=== PATIENT | female | born 1990 | race African-American/Black ===

== ENCOUNTER 2016-11-25 15:05 | Emergency (ER) | payer MEDICAID ==
[~2016-11-25] VITALS: Ht 157.5 cm; Wt 60.0 kg
[~2016-11-25 15:05] MED LIST: CYCL-36 PO; DICL50 PO; NAPR-576 PO
[2016-11-25 15:06] VITALS: BP 109/62; PULSE 88; RESP 18; TEMP 98.9; O2SAT 97
--- NOTE | 2016-11-25 15:37 | PD ---
HPI Chief Complaint: Complaint Time Seen by Provider: 15:37 Travel History International Travel<30 days: No Contact w/Intl Traveler<30days: No Traveled to known affect area: No History of Present Illness HPI 26 year old female came to the emergency room with history of dysuria, frequency or past 4 days. She is also having some chills and cough. Since yesterday she also noticed that the pain was more on the left side of her abdomen and was spasmodic in nature comes and goes. No history of nausea vomiting. Patient has never had pain like this before. She has had UTIs in the past. Her last bowel movement was 4 days ago. Vital signs were stable. She is otherwise a healthy person. [facility] Past Medical History Narrative Medical List of her past medical history as reviewed from the nursing note. Diminished Hearing: No Immunizations Current: No ?: Not LMP: 10/14/16 : 3 Para: 3 Miscarriage: 0 : 0 Social History Alcohol Use: Yes (Occasionally) Tobacco Use: No Substance Use: No Allergies-Medications (Allergen,Severity, Reaction): Coded Allergies: No Known Allergies (Verified , 07/03/16) Comments No known drug allergies. Reported Meds & Prescriptions Reported Meds & Active Scripts Active Macrobid (Nitrofurantoin Monoh/Nitrofur Macro) 100 Mg Cap 100 Mg PO BID 10 Days Narrative Medication list of her home medications reviewed from the nursing note. Review of Systems Except as stated in HPI: all other systems reviewed are Neg Physical Exam Narrative GENERAL: Awake, alert, no obvious distress SKIN: Warm and dry. HEAD: Atraumatic. Normocephalic. EYES: Pupils equal and round. No scleral icterus. No injection or drainage. ENT: No nasal bleeding or discharge. Mucous membranes pink and moist. NECK: Trachea midline. No JVD. CARDIOVASCULAR: Regular rate and rhythm. No murmur appreciated. RESPIRATORY: No accessory muscle use. Clear to auscultation. Breath sounds equal bilaterally. GASTROINTESTINAL: Abdomen soft, non-tender, nondistended. Hepatic and splenic margins not palpable. No CVA tenderness MUSCULOSKELETAL: No obvious deformities. No clubbing. No cyanosis. No edema. NEUROLOGICAL: Awake and alert. No obvious cranial nerve deficits. Motor grossly within normal limits. Normal speech. PSYCHIATRIC: Appropriate mood and affect; insight and judgment normal. Data Data Last Documented VS Vital Signs Date Time Temp Pulse Resp B/P Pulse Ox O2 Delivery O2 Flow Rate FiO2 11/25/16 17:38 84 18 110/64 100 Room Air 11/25/16 15:06 98.9 Orders Urinalysis - C+S If Indicated (11/25/16 15:18) Ed Urine Pregnancytest Poc (11/25/16 15:18) Complete Blood Count With Diff (11/25/16 15:44) Comprehensive Metabolic Panel (11/25/16 15:44) Lipase (11/25/16 15:44) Sodium Chlor 0.9% 1000 Ml Inj (Ns 1000 M (11/25/16 15:45) Mineral Oil Enema (Fleet Mineral Oil Jennifer (11/25/16 16:00) Urine Culture (11/25/16 15:15) Nitrofurantoin Monohyd Macrocr (Macrobid (11/25/16 16:15) Labs Laboratory Tests Test 11/25/16 11/25/16 15:15 16:20 Urine Color YELLOW Urine Turbidity HAZY Urine pH 7.0 Urine Specific [place] 1.016 Urine Protein 100 mg/dL Urine Glucose (UA) NEG mg/dL Urine Ketones NEG mg/dL Urine Occult Blood MOD Urine Nitrite NEG Urine Bilirubin NEG Urine Urobilinogen 2.0 MG/DL Urine Leukocyte Esterase LARGE Urine RBC 15 /hpf Urine WBC 59 /hpf Urine WBC Clumps FEW Urine Squamous Epithelial 1 /hpf Cells Urine Mucus MOD /lpf Microscopic Urinalysis Comment CULTURE INDICATED White Blood Count 11.1 TH/MM3 Red Blood Count 4.34 MIL/MM3 Hemoglobin 12.8 GM/DL Hematocrit 38.9 % Mean Corpuscular Volume 89.6 FL Mean Corpuscular Hemoglobin 29.4 PG Mean Corpuscular Hemoglobin 32.8 % Concent Red Cell Distribution Width 13.3 % Platelet Count 169 TH/MM3 Mean Platelet Volume 10.2 FL Neutrophils (%) (Auto) 82.8 % Lymphocytes (%) (Auto) 10.7 % Monocytes (%) (Auto) 5.8 % Eosinophils (%) (Auto) 0.1 % Basophils (%) (Auto) 0.6 % Neutrophils # (Auto) 9.2 TH/MM3 Lymphocytes # (Auto) 1.2 TH/MM3 Monocytes # (Auto) 0.6 TH/MM3 Eosinophils # (Auto) 0.0 TH/MM3 Basophils # (Auto) 0.1 TH/MM3 CBC Comment DIFF FINAL Differential Comment Sodium Level 137 MEQ/L Potassium Level 3.8 MEQ/L Chloride Level 105 MEQ/L Carbon Dioxide Level 25.6 MEQ/L Anion Gap 6 MEQ/L Blood Urea Nitrogen 8 MG/DL Creatinine 0.77 MG/DL Estimat Glomerular Filtration 111 ML/MIN Rate Random Glucose 84 MG/DL Calcium Level 9.0 MG/DL Total Bilirubin 0.7 MG/DL Aspartate Amino Transf 11 U/L (AST/SGOT) Alanine Aminotransferase 26 U/L (ALT/SGPT) Alkaline Phosphatase 73 U/L Total Protein 8.0 GM/DL Albumin 4.1 GM/DL Lipase 63 U/L [facility] Medical Decision Making Medical Screen Exam Complete: Yes Emergency Medical Condition: Yes Medical Record Reviewed: Yes Differential Diagnosis UTI, pyelonephritis, constipation Narrative Course 4:33 PM urinalysis is grossly positive for UTI. I've given her a dose of Macrobid. Waiting for the blood test results. Patient is also getting a Fleet' s enema. 5:33 PM blood test results of back and within acceptable limits. She has mild leukocytosis with left shift. I will discharge her home with by mouth Macrobid prescription. She did get 1 dose of Macrobid here. Procedures EKG Prior to Arrival: No Diagnosis Primary Impression: UTI (urinary tract infection) Qualified Code: N39.0 - Urinary tract infection without hematuria, site unspecified Additional Impression: Cystitis Referrals: Primary Care Physician 2 days Additional Instructions: Please return to the ER if the condition worsens or any other new concerns. Otherwise follow-up with your primary care in couple days. Take the medication as per the prescription direction. Med/Other Pt SpecificInfo: Prescription(s) given Scripts Nitrofurantoin Monohydrate Macrocrystals (Macrobid)100 Mg [id number] Mg PO BID 10 Days Ref 0 Prov:Leticia Ramirez MD 11/25/16 Disposition: 01 DISCHARGE HOME Condition: Stable Leticia Ramirez MD Nov 25, 2016 15:37
[2016-11-25] MEDS ORDERED: SODIUM CHLOR 0.9% 1000 ML INJ 1,000 ML IV ONE (15:45)
[2016-11-25 15:58] LABS: BLOOD, URINE MOD (NEG); COMMENT (UR) CULTURE INDICATED; CULTURE IF INDICATED CULTURE INDICATED; GLUCOSE,URINE NEG (NEG); KETONE, URINE NEG (NEG); MUCUS URINE MOD /lpf (OCC); NITRITE,URINE NEG (NEG); SQUAMOUS EPITHELIAL CELL URINE 1 /hpf (0-5); URINE COLOR YELLOW (YELLW/STRAW)
[2016-11-25] MEDS ORDERED: MINERAL OIL ENEMA 118 ML BTL RECTAL ONE (16:00)
[2016-11-25] MEDS ORDERED: NITROFURANTOIN MONOHYD MACROCR 100 MG CAP PO ONE (16:15)
[2016-11-25 16:51] LABS: AUTOMATED NEUTROPHIL # 9.2 TH/MM3 (1.8-7.7); BASOPHIL # 0.1 TH/MM3 (0-0.2); BASOPHIL % 0.6 % (0.0-2.0); EOSINOPHIL % 0.1 % (0.0-4.0); HEMATOCRIT 38.9 % (35.0-46.0); HEMO FLAGS DIFF FINAL; LYMPH % 10.7 % (9.0-44.0); LYMPHOCYTE # 1.2 TH/MM3 (1.0-4.8); MEAN CELL VOLUME 89.6 FL (80.0-100.0); MEAN CORPUSCULAR HEMOGLOBIN 29.4 PG (27.0-34.0); MEAN CORPUSCULAR HGB CONC 32.8 % (32.0-36.0); MONO % 5.8 % (0.0-8.0); NEUT % 82.8 % (16.0-70.0); PLATELET COUNT 169 TH/MM3 (150-450); RED BLOOD COUNT 4.34 MIL/MM3 (4.00-5.30); RED CELL DISTRIBUTION WIDTH 13.3 % (11.6-17.2); WHITE BLOOD COUNT 11.1 TH/MM3 (4.0-11.0)
[2016-11-25 17:09] LABS: ALT (GPT) 26 U/L (10-53); ANION GAP 6 MEQ/L (5-15); AST (GOT) 11 U/L (15-37); BICARBONATE 25.6 MEQ/L (21.0-32.0); BLOOD UREA NITROGEN 8 MG/DL (7-18); CHLORIDE 105 MEQ/L (98-107); GLOMERULAR FILTRATION RATE 111 ML/MIN (>89); POTASSIUM 3.8 MEQ/L (3.5-5.1); SODIUM (NA) 137 MEQ/L (136-145)
[2016-11-25 17:11] LABS: ALKALINE PHOSPHATASE 73 U/L (45-117); TOTAL BILIRUBIN ADULT 0.7 MG/DL (0.2-1.0)
[2016-11-25 17:38] VITALS: BP 110/64; PULSE 84; RESP 18; O2SAT 100
[2016-11-25] MEDS ORDERED: MACR100C2 PO (17:40)
== END 2016-11-25 18:37 | disposition home or self-care (01) ==
LOC: NEPC 15:05
DX: N39.0 Urinary tract infection, site not specified (principal); B96.29 Other Escherichia coli [E. coli] as the cause of diseases classified elsewhere
CPT/HCPCS: 80053; 81001; 83690; 84703; 85025; 87077; 87086; 87186; 96360; 99283; J7030

== ENCOUNTER 2017-10-02 21:27 | Emergency (ER) | payer MEDICAID ==
[~2017-10-02 21:27] MED LIST changes: -CYCL-36 PO; -DICL50 PO; +MACR100C2 PO; -NAPR-576 PO
[2017-10-02 21:29] VITALS: BP 112/71; PULSE 73; RESP 16; TEMP 98.2; O2SAT 99
[2017-10-02] MEDS ORDERED: SODIUM CHLOR 0.9% 1000 ML INJ 1,000 ML IV ONE (22:00)
[2017-10-02] MEDS ORDERED: ONDANSETRON HCL 4 MG/2 ML VIAL IV PUSH ONE (22:00)
--- NOTE | 2017-10-02 22:06 | PD ---
HPI Chief Complaint: GI Complaint Time Seen by Provider: 21:59 Travel History International Travel<30 days: No Contact w/Intl Traveler<30days: No Traveled to known affect area: No History of Present Illness HPI 27-year-old female presents to the emergency department for one day of multiple episodes of vomiting. Patient denies fever chills abdominal pain or diarrhea. Patient has had no dysuria frequency urgency flank pain vaginal discharge or vaginal bleeding. Patient denies . Last missed her period was July 24 and normal for her. Patient has irregular menses. She has had 2 negative home test. Patient is 3 para 3. Patient's had no cough congestion sore throat earache chest pain or shortness of breath. Patient states that he thinks she attempts to drink or eat she vomits. Patient has had no hematemesis coffee-ground emesis. Patient denies diarrhea. Patient' s had no melena or hematochezia. Patient states poor recently has noted some bilious emesis. Patient denies any abdominal pain. Patient's had no near- syncope or syncope. Denies dietary indiscretion, well water ingestion, or foreign travel. PFSH Past Medical History Narrative Medical Negative catheterization negative surgical history Ab0 positive tobacco use nursing notes reviewed Medical History: Denies Significant Hx Diminished Hearing: No Immunizations Current: No ?: Unknown LMP: july 24 : 3 Para: 3 Miscarriage: 0 : 0 Past Surgical History Surgical History: No Previous Surgery Social History Alcohol Use: No Tobacco Use: Yes (black and milds) Substance Use: No Allergies-Medications (Allergen,Severity, Reaction): Coded Allergies: *MDRO Multi-Drug Resistant Organism (Verified Adverse Reaction, Unknown, ) ESBL+E.Coli (urine)-11/25/16 Reported Meds & Prescriptions Reported Meds & Active Scripts Active Zofran Odt (Ondansetron Odt) 4 Mg Tab 4 Mg SL Q6HR PRN Review of Systems Except as stated in HPI: all other systems reviewed are Neg General / Constitutional: No: Fever, Chills Eyes: No: Visual changes HENT: No: Headaches, Sore Throat, Congestion Cardiovascular: No: Chest Pain or Discomfort, Syncope Respiratory: No: Cough, Shortness of Breath Gastrointestinal: Positive: Nausea, Vomiting, No: Diarrhea, Abdominal Pain Genitourinary: No: Dysuria, Pelvic Pain, Flank Pain, Discharge, Vaginal Bleeding Musculoskeletal: No: Myalgias, Arthralgias Skin: No Rash Neurologic: No: Weakness, Dizziness, Syncope Psychiatric: No: Anxiety Endocrine: No: Heat Intolerance, Cold Intolerance Hematologic/Lymphatic: No: Easy Bruising Physical Exam Narrative GENERAL: Well developed well-nourished female in no acute distress no respiratory distress SKIN: Warm and dry. HEAD: Normocephalic. EYES: No scleral icterus. No injection or drainage. NECK: Supple, trachea midline. No JVD or lymphadenopathy. CARDIOVASCULAR: Regular rate and rhythm without murmurs, gallops, or rubs. RESPIRATORY: Breath sounds equal bilaterally. No accessory muscle use. GASTROINTESTINAL: Abdomen soft, non-tender, nondistended. MUSCULOSKELETAL: No cyanosis, or edema. BACK: Nontender without obvious deformity. No CVA tenderness. Data Data Last Documented VS Vital Signs Date Time Temp Pulse Resp B/P (MAP) Pulse Ox O2 Delivery O2 Flow Rate FiO2 10/02/17 23:21 10/02/17 21:29 98.2 73 16 99 Room Air Orders Orders Complete Blood Count With Diff (10/02/17 21:32) Comprehensive Metabolic Panel (10/02/17 21:32) Lipase (10/02/17 21:32) Urinalysis - C+S If Indicated (10/02/17 21:32) Ed Urine Pregnancytest Poc (10/02/17 21:32) ^ Saline Lock (10/02/17 21:59) Sodium Chlor 0.9% 1000 Ml Inj (Ns 1000 M (10/02/17 22:00) Ondansetron Inj (Zofran Inj) (10/02/17 22:00) Ed Discharge Order (10/02/17 22:32) Labs Laboratory Tests Test 10/02/17 21:35 10/02/17 21:50 Urine Color YELLOW Urine Turbidity HAZY Urine pH 8.0 Urine Specific [place] 1.028 Urine Protein 30 mg/dL Urine Glucose (UA) NEG mg/dL Urine Ketones NEG mg/dL Urine Occult Blood NEG Urine Nitrite NEG Urine Bilirubin NEG Urine Urobilinogen LESS THAN 2.0 MG/DL Urine Leukocyte Esterase NEG Urine RBC 1 /hpf Urine WBC 3 /hpf Urine Squamous Epithelial Cells 9 /hpf Urine Hyaline Casts 1 /lpf Urine Mucus MOD /lpf Microscopic Urinalysis Comment CULT NOT INDICATED White Blood Count 7.5 TH/MM3 Red Blood Count 4.27 MIL/MM3 Hemoglobin 12.6 GM/DL Hematocrit 38.3 % Mean Corpuscular Volume 89.7 FL Mean Corpuscular Hemoglobin 29.5 PG Mean Corpuscular Hemoglobin Concent 32.9 % Red Cell Distribution Width 13.7 % Platelet Count 190 TH/MM3 Mean Platelet Volume 10.0 FL Neutrophils (%) (Auto) 65.6 % Lymphocytes (%) (Auto) 26.4 % Monocytes (%) (Auto) 6.5 % Eosinophils (%) (Auto) 0.9 % Basophils (%) (Auto) 0.6 % Neutrophils # (Auto) 4.9 TH/MM3 Lymphocytes # (Auto) 2.0 TH/MM3 Monocytes # (Auto) 0.5 TH/MM3 Eosinophils # (Auto) 0.1 TH/MM3 Basophils # (Auto) 0.0 TH/MM3 CBC Comment DIFF FINAL Differential Comment Blood Urea Nitrogen 15 MG/DL Creatinine 0.79 MG/DL Random Glucose 87 MG/DL Total Protein 8.4 GM/DL Albumin 4.1 GM/DL Calcium Level 8.7 MG/DL Alkaline Phosphatase 84 U/L Aspartate Amino Transf (AST/SGOT) 14 U/L Alanine Aminotransferase (ALT/SGPT) 21 U/L Total Bilirubin 0.4 MG/DL Sodium Level 138 MEQ/L Potassium Level 4.0 MEQ/L Chloride Level 104 MEQ/L Carbon Dioxide Level 29.2 MEQ/L Anion Gap 5 MEQ/L Estimat Glomerular Filtration Rate 107 ML/MIN Lipase 50 U/L [facility] Medical Decision Making Medical Screen Exam Complete: Yes Emergency Medical Condition: Yes Medical Record Reviewed: Yes Interpretation(s) POC hCG: Negative Differential Diagnosis Viral syndrome, food borne illness, vomiting , UTI, also to consider bowel obstruction Narrative Course IV access obtained specimens collected and sent for resulting patient administered Zofran 4 mg IV and 1 L normal saline Lab values found to be grossly within normal range [id number] hCG is negative Patient clinically improved after IV fluids and Zofran and no further nausea or vomiting Patient is stable for outpatient management and follow-up with primary care provider; patient given prescription for Zofran Diagnosis Primary Impression: Vomiting Referrals: Primary Care Physician call for appointment Patient Instructions: General Instructions Departure Forms: Tests/Procedures, Work Release Special Instructions: no work x 1 day Additional Instructions: Follow clear liquid diet for next 12-24 hours advance as tolerated bland/Carol diet and regular diet Takes Zofran as prescribed as needed for nausea and/or vomiting Return to the emergency department for any concerns or change in condition No work times one day Med/Other Pt SpecificInfo: Prescription(s) given Scripts Ondansetron Odt (Zofran Odt) 4 Mg Tab 4 MG SL Q6HR Y for Nausea/Vomiting, #10 TAB 0 Refills Prov: Madisyn Youssef MD 10/02/17 Disposition: 01 DISCHARGE HOME Condition: Stable Madisyn Youssef MD Oct 02, 2017 22:06
[2017-10-02 22:07] LABS: BILIRUBIN, URINE NEG (NEG); BLOOD, URINE NEG (NEG); GLUCOSE,URINE NEG (NEG); HYALINE CAST, URINE 1 /lpf (RARE); KETONE, URINE NEG (NEG); MUCUS URINE MOD /lpf (OCC); NITRITE,URINE NEG (NEG); SQUAMOUS EPITHELIAL CELL URINE 9 /hpf (0-5); URINE COLOR YELLOW (YELLW/STRAW); URINE LEUKOCYTE ESTERASE NEG (NEG)
[2017-10-02 22:09] LABS: AUTOMATED NEUTROPHIL # 4.9 TH/MM3 (1.8-7.7); BASOPHIL % 0.6 % (0.0-2.0); EOSINOPHIL # 0.1 TH/MM3 (0-0.4); EOSINOPHIL % 0.9 % (0.0-4.0); HEMATOCRIT 38.3 % (35.0-46.0); HEMOGLOBIN 12.6 GM/DL (11.6-15.3); LYMPH % 26.4 % (9.0-44.0); MEAN CELL VOLUME 89.7 FL (80.0-100.0); MEAN CORPUSCULAR HEMOGLOBIN 29.5 PG (27.0-34.0); MEAN CORPUSCULAR HGB CONC 32.9 % (32.0-36.0); MONO % 6.5 % (0.0-8.0); MONOCYTE # 0.5 TH/MM3 (0-0.9); NEUT % 65.6 % (16.0-70.0); PLATELET COUNT 190 TH/MM3 (150-450); RED BLOOD COUNT 4.27 MIL/MM3 (4.00-5.30); RED CELL DISTRIBUTION WIDTH 13.7 % (11.6-17.2); WHITE BLOOD COUNT 7.5 TH/MM3 (4.0-11.0)
[2017-10-02 22:22] LABS: ALBUMIN 4.1 GM/DL (3.4-5.0); AST (GOT) 14 U/L (15-37); BICARBONATE 29.2 MEQ/L (21.0-32.0); BLOOD UREA NITROGEN 15 MG/DL (7-18); CALCIUM 8.7 MG/DL (8.5-10.1); CHLORIDE 104 MEQ/L (98-107); CREATININE 0.79 MG/DL (0.50-1.00); GLOMERULAR FILTRATION RATE 107 ML/MIN (>89); GLUCOSE,RANDOM 87 MG/DL (74-106); LIPASE 50 U/L (73-393); SODIUM (NA) 138 MEQ/L (136-145)
[2017-10-02 22:24] LABS: ALT (GPT) 21 U/L (10-53)
[2017-10-02 22:26] LABS: ALKALINE PHOSPHATASE 84 U/L (45-117); TOTAL BILIRUBIN ADULT 0.4 MG/DL (0.2-1.0); TOTAL PROTEIN 8.4 GM/DL (6.4-8.2)
[2017-10-02] MEDS ORDERED: ZOFR4TAB3 SL (22:33)
== END 2017-10-02 23:21 | disposition home or self-care (01) ==
LOC: NEPC 21:27
DX: R11.10 Vomiting, unspecified (principal); Z72.0 Tobacco use; Z88.1 Allergy status to other antibiotic agents; Z88.8 Allergy status to other drugs, medicaments and biological substances
CPT/HCPCS: 80053; 81001; 83690; 84703; 85025; 96374; 99284; J2405; J7030

== ENCOUNTER 2018-01-16 10:37 | Emergency (ER) | payer MEDICAID ==
[~2018-01-16 10:37] MED LIST changes: -MACR100C2 PO; +ZOFR4TAB3 SL
[2018-01-16 10:55] VITALS: BP 116/73; PULSE 75; RESP 16; TEMP 98; O2SAT 99
[2018-01-17] MEDS ORDERED: BACT800T5 PO
== END 2018-01-16 14:00 | disposition left against medical advice (07) ==
LOC: NED 10:37
DX: M79.644 Pain in right finger(s) (principal); R22.31 Localized swelling, mass and lump, right upper limb; Z53.21 Procedure and treatment not carried out due to patient leaving prior to being seen by health care provider
CPT/HCPCS: 99281

== ENCOUNTER 2018-01-16 20:33 | Emergency (ER) | payer MEDICAID ==
[~2018-01-16] VITALS: Ht 157.5 cm; Wt 65.0 kg
[2018-01-16 21:39] VITALS: BP 129/83; PULSE 87; RESP 16; TEMP 98.2; O2SAT 99
--- NOTE | 2018-01-16 23:03 | PD ---
HPI Chief Complaint: Skin Problem Time Seen by Provider: 23:02 Travel History International Travel<30 days: No Contact w/Intl Traveler<30days: No Traveled to known affect area: No History of Present Illness HPI 28-year-old female came to the emergency room with history of right armpit abscess. Patient shaves her armpit and has had an abscess in that area couple years ago. Patient says this has been going on for past 4-5 days. Currently it is extremely painful and hurts to move her arm. She is also complaining of her right hand fingers swollen after she jammed her pinky finger over the weekend. Vital signs are stable. No history of fever or chills. [facility] Past Medical History Narrative Medical List of her past medical, surgical, social and family history is reviewed from the nursing note. Diminished Hearing: No Immunizations Current: No Tetanus Vaccination: Unknown Influenza Vaccination: No ?: Unknown : 3 Para: 3 Miscarriage: 0 : 0 Social History Alcohol Use: No Tobacco Use: Yes (black and milds) Substance Use: No Allergies-Medications (Allergen,Severity, Reaction): Coded Allergies: *MDRO Multi-Drug Resistant Organism (Verified Adverse Reaction, Unknown, ) ESBL+E.Coli (urine)-11/25/16 Comments List of her allergies reviewed from the nursing note. Reported Meds & Prescriptions Reported Meds & Active Scripts Active Bactrim DS (Sulfamethoxazole-Trimethoprim) 800-160 Mg Tab 1 Tab PO BID Zofran Odt (Ondansetron Odt) 4 Mg Tab 4 Mg SL Q6HR PRN Narrative Medication List of her home medications reviewed from the nursing note. Review of Systems Except as stated in HPI: all other systems reviewed are Neg Physical Exam Narrative GENERAL: Awake, alert, moderate distress SKIN: Focused skin assessment warm/dry. Right arm. Abscess with fluctuance 2 x 3 centimeter, extremely tender to touch HEAD: Atraumatic. Normocephalic. EYES: Pupils equal and round. No scleral icterus. No injection or drainage. ENT: No nasal bleeding or discharge. Mucous membranes pink and moist. NECK: Trachea midline. No JVD. CARDIOVASCULAR: Regular rate and rhythm. No murmur appreciated. RESPIRATORY: No accessory muscle use. Clear to auscultation. Breath sounds equal bilaterally. GASTROINTESTINAL: Abdomen soft, non-tender, nondistended. Hepatic and splenic margins not palpable. MUSCULOSKELETAL: No obvious deformities. No clubbing. No cyanosis. No edema. All 5 fingers of the right hand appear to be slightly swollen. No deformity NEUROLOGICAL: Awake and alert. No obvious cranial nerve deficits. Motor grossly within normal limits. Normal speech. PSYCHIATRIC: Appropriate mood and affect; insight and judgment normal. Data Data Last Documented VS Vital Signs Date Time Temp Pulse Resp B/P (MAP) Pulse Ox O2 Delivery O2 Flow Rate FiO2 01/16/18 21:39 98.2 87 16 129/83 (98) 99 Orders Orders Hand, Complete ([id number]) (01/16/18 ) Wound Culture And Gram Stain (01/16/18 23:31) Sulfamet-Trimeth Ds 800-160 Mg (Bactrim (01/16/18 23:45) Lidocaine 1% Inj (Xylocaine 1% Inj) (01/16/18 23:33) Acetamin-Hydrocod 325-5 Mg ([place] 5-325 (01/17/18 00:00) Ed Discharge Order (01/16/18 23:58) MDM Medical Decision Making Medical Screen Exam Complete: Yes Emergency Medical Condition: Yes Medical Record Reviewed: Yes Differential Diagnosis Abscess, finger contusion Narrative Course 12:04 AM the abscess has been drained by me. Please refer to my procedure note. Patient tolerated the procedure well. I gave her a dose of Bactrim and hydrocodone. An x-ray of the hand was also ordered. Awaiting for the report. Patient will be discharged home on Bactrim prescription. I visualized the xray and did not see any acute injury. Procedures Procedure Narrative Incision and drainage: The area was cleaned with Betadine swabs 3. 1% lidocaine was infiltrated for local anesthesia 2 mL's. An incision along the crease in the armpit was made. Pus came out. Culture was collected. After loculations were broken the abscess cavity was packed with iodoform gauze strip. Patient tolerated the procedure well. The nurse will put a dry dressing. EKG Prior to Arrival: No Diagnosis Primary Impression: Abscess Additional Impression: Finger contusion Qualified Codes: S60.051A - Contusion of right little finger without damage to nail, initial encounter Referrals: Primary Care Physician 2 days Additional Instructions: Keep the packing in. Apply warm compress to the area. Take the antibiotic as per the prescription direction. You can take Tylenol/Motrin/ibuprofen/Advil for pain relief. Apply a loose dry dressing on the area. Return to the ER in 48 hours to get the packing taken out. If the packing falls off on its own then it is all right. Return to the ER if condition worsens or any other new concerns. He should not shave for another 6 weeks. Med/Other Pt SpecificInfo: Prescription(s) given Scripts Sulfamethoxazole-Trimethoprim (Bactrim DS) 800-160 Mg Tab 1 TAB PO BID for Infection, #20 TAB 0 Refills Prov: Leticia Ramirez MD 01/17/18 Disposition: 01 DISCHARGE HOME Condition: Stable Leticia Ramirez MD Jan 16, 2018 23:03
[2018-01-16] MEDS ORDERED: LIDOCAINE HCL 1% 20 ML VIAL ONE (23:33)
[2018-01-16] MEDS ORDERED: SULFAMETHOXAZOLE-TRIMETHOPRIM DS 800-160 MG TAB PO ONE (23:45)
[2018-01-17] MEDS ORDERED: ACETAMINOPHEN/HYDROcodone 325 MG/5 MG TAB PO ONE
[2018-01-17] MEDS ORDERED: BACT800T5 PO
--- NOTE | 2018-01-17 01:16 | RADRPT ---
EXAM DATE/TIME: 01/16/2018 23:56 [place] COMPARISON: No previous studies available for comparison. INDICATIONS : Jammed finger in door. MEDICAL HISTORY : None. SURGICAL HISTORY : None. ENCOUNTER: Initial ACUITY: 1 day PAIN SCORE: 5/10 LOCATION: Right Hand, 5th digit. FINDINGS: 3 views right hand. Bone alignment within normal limits. No evidence of fracture. No evidence of meliton nt narrowing. Bone mineralization within normal limits. CONCLUSION: No evidence of fracture. Estrada Helton MD on January 17, 2018 at 1:13 Board Certified Radiologist. This report was verified electronically.
== END 2018-01-17 00:22 | disposition home or self-care (01) ==
LOC: NEPD 20:33
DX: L02.411 Cutaneous abscess of right axilla (principal); B96.4 Proteus (mirabilis) (morganii) as the cause of diseases classified elsewhere; S60.051A Contusion of right little finger without damage to nail, initial encounter; W23.0XXA Caught, crushed, jammed, or pinched between moving objects, initial encounter; Z72.0 Tobacco use
CPT/HCPCS: 10061; 73130; 86403; 87070; 87077; 87186